=== PATIENT | female | born 1935 | race Caucasian/White ===

== ENCOUNTER 2016-09-22 02:29 | Emergency (ER) | payer MEDICARE, BC ==
[~2016-09-22 02:29] MED LIST: ALLEGRA180 PO; ALORA0.05 MG TD; ASAB PO; BENTYL20 PO; CENTRUM TAB1 TAB PO; DIOV160 PO; DIOVAN320 MG PO; DITRO5 PO; DITROPAN XL10 MG PO; ESTRADIOL1 MG PO; FLONASE NAS; GAS-X80 MG PO; L20 PO; MIRALAXPKT PO; OS500+D PO; PRILO PO; PROTONIX PO; SYN.025B PO; SYN075 PO; ZESTRIL20 MG PO; [UNRECOGNIZED DRUG - CODE] PO; [UNRECOGNIZED DRUG - OTHER] PO
== END 2016-09-22 05:11 | disposition home or self-care (01) ==
LOC: ER 02:29
DX: T78.3XXA Angioneurotic edema, initial encounter (principal); I10 Essential (primary) hypertension; Z79.899 Other long term (current) drug therapy; Z79.82 Long term (current) use of aspirin
CPT/HCPCS: 96374; 99285; J2930